=== PATIENT | male | born 1940 | race Caucasian/White ===

== ENCOUNTER 2023-01-22 15:44 | Emergency (ER) | payer MEDICARE, BC ==
[~2023-01-22] VITALS: Ht 180.3 cm; Wt 82.6 kg
[2023-01-22 16:14] VITALS: TEMP 98.2
[2023-01-22] MEDS ORDERED: ACETAMINOPHEN 325 MG TABLET PO ONE (17:00)
[2023-01-22] MEDS ORDERED: ACETAMINOPHEN ES 500 MG TABLET ONE (17:10)
[2023-01-22] MEDS ORDERED: ONDANSETRON 4 MG TAB.RAPDIS SL ONE (17:30)
[2023-01-22] MEDS ORDERED: ONDANSETRON 4 MG TAB.RAPDIS ONE (17:35)
[2023-01-22] MEDS ORDERED: CYCL10TA9 PO (18:16)
[2023-01-22 18:22] VITALS: BP 132/70; O2SAT 98
== END 2023-01-22 18:23 | disposition home or self-care (01) ==
LOC: ER 15:50
DX: S16.1XXA Strain of muscle, fascia and tendon at neck level, initial encounter (principal); S46.812A Strain of other muscles, fascia and tendons at shoulder and upper arm level, left arm, initial encounter; E11.9 Type 2 diabetes mellitus without complications; Z79.899 Other long term (current) drug therapy; V49.3XXA Car occupant (driver) (passenger) injured in unspecified nontraffic accident, initial encounter; Y93.89 Activity, other specified; Y92.89 Other specified places as the place of occurrence of the external cause; Y99.8 Other external cause status
CPT/HCPCS: 99284; 71045; 93005; 72040; 73030; Q0162